=== PATIENT | female | born 2000 | race African-American/Black ===

== ENCOUNTER → 2021-09-27 | Outpatient (CLI) | payer OTHER ==
[2021-09-29 07:11] LABS: HIV AB/P24 AG SCREEN Non Reactive (Non Reactive)
[2021-09-29 09:12] LABS: HBSAG SCREEN Negative (Negative); HCV ANTIBODY <0.1 (0.0-0.9)
[2021-09-30 13:11] LABS: CHLAMYDIA BY NAA Negative (Negative); GONOCOCCUS BY NAA Negative (Negative); TRICH VAG BY NAA Negative (Negative)
== END ==
LOC: LAB 16:30 → LAB SHORT 16:30
PROVIDERS: Registered Nurse Community Health
DX: Z11.3 Encounter for screening for infections with a predominantly sexual mode of transmission (principal)
CPT/HCPCS: 86592; 86803; 87340; 87389

== ENCOUNTER → 2022-09-27 | Outpatient (CLI) | payer OTHER ==
[2022-09-27 14:30] LABS: Hematocrit 33.3 % (33.0-51.0); Hemoglobin 11.1 g/dL (11.5-16.0)
== END | disposition home or self-care (01) ==
LOC: LAB SHORT 13:27 → LAB 13:27
PROVIDERS: Registered Nurse Community Health
DX: Z34.92 Encounter for supervision of normal pregnancy, unspecified, second trimester (principal)
CPT/HCPCS: 82950; 85014; 85018

== ENCOUNTER → 2022-11-23 | Outpatient (CLI) | payer OTHER | LOC: LAB 14:22 → LAB SHORT 14:22 | DX: Z34.03 Encounter for supervision of normal first pregnancy, third trimester (principal) | CPT/HCPCS: 87081; 87150 ==

== ENCOUNTER 2022-12-13 17:45 | Inpatient (IN) | payer OTHER ==
[2022-12-13] VITALS (14 sets, daily range): BP systolic 99–120; BP diastolic 57–70
[~2022-12-13] VITALS: Ht 167.6 cm; Wt 75.5 kg
[2022-12-13 22:25] LABS: BASOPHILS ABSOLUTE AUTO 0.04 K/mm3 (0.00-0.23); BASOPHILS PERCENT AUTO 0 % (0-2); EOSINOPHILS ABSOLUTE AUTO 0.09 K/mm3 (0.00-0.68); EOSINOPHILS PERCENT AUTO 1 % (0-6); Hematocrit 37.1 % (33.0-51.0); Hemoglobin 12.6 g/dL (11.5-16.0); IMMATURE GRAN ABSOLUTE AUTO 0.21 K/mm3 (0.00-0.10); IMMATURE GRAN PERCENT AUTO 1 % (0-1); LYMPHOCYTES ABSOLUTE AUTO 0.75 K/mm3 (0.84-5.20); LYMPHOCYTES PERCENT AUTO 4 % (21-46); MONOCYTES ABSOLUTE AUTO 0.54 K/mm3 (0.16-1.47); MONOCYTES PERCENT AUTO 3 % (4-13); Mean Corpuscular HGB 31.5 pg (26.0-34.0); Mean Corpuscular Volume 93 fL (80-100); Mean Platelet Volume 11.7 fL (9.1-12.4); NEUTROPHILS ABSOLUTE AUTO 17.48 K/mm3 (1.96-9.15); NEUTROPHILS PERCENT AUTO 92 % (41-73); Platelet Count 123 K/mm3 (150-400); RDW Coefficient Variation 12.2 % (11.7-14.2); RDW Standard Deviation 41.7 fL (35.1-46.3); White Blood Cell Count 19.11 K/mm3 (4.00-11.30)
[2022-12-14] VITALS (26 sets, daily range): BP systolic 96–118; BP diastolic 50–69
[2022-12-15 02:36] VITALS: BP 112/68
[2022-12-15 05:43] VITALS: BP 106/66
[2022-12-15 06:08] LABS: BASOPHILS ABSOLUTE AUTO 0.03 K/mm3 (0.00-0.23); BASOPHILS PERCENT AUTO 0 % (0-2); EOSINOPHILS ABSOLUTE AUTO 0.01 K/mm3 (0.00-0.68); EOSINOPHILS PERCENT AUTO 0 % (0-6); Hematocrit 30.4 % (33.0-51.0); Hemoglobin 10.5 g/dL (11.5-16.0); IMMATURE GRAN ABSOLUTE AUTO 0.23 K/mm3 (0.00-0.10); IMMATURE GRAN PERCENT AUTO 1 % (0-1); LYMPHOCYTES ABSOLUTE AUTO 1.64 K/mm3 (0.84-5.20); LYMPHOCYTES PERCENT AUTO 8 % (21-46); MONOCYTES ABSOLUTE AUTO 1.58 K/mm3 (0.16-1.47); MONOCYTES PERCENT AUTO 7 % (4-13); Mean Corpuscular HGB 31.7 pg (26.0-34.0); Mean Corpuscular HGB Conc 34.5 g/dL (31.5-36.5); Mean Corpuscular Volume 92 fL (80-100); Mean Platelet Volume 11.2 fL (9.1-12.4); NEUTROPHILS ABSOLUTE AUTO 17.88 K/mm3 (1.96-9.15); NEUTROPHILS PERCENT AUTO 84 % (41-73); Platelet Count 111 K/mm3 (150-400); RDW Coefficient Variation 12.3 % (11.7-14.2); RDW Standard Deviation 41.6 fL (35.1-46.3); Red Blood Cell Count 3.31 M/mm3 (3.80-5.20); White Blood Cell Count 21.37 K/mm3 (4.00-11.30)
[2022-12-15 08:22] VITALS: BP 107/55
[2022-12-15 11:25] VITALS: BP 91/57
--- NOTE | 2022-12-15 20:48 | NUR ---
[facility] HOME WITH [facility]ABY
== END 2022-12-15 19:45 | disposition home or self-care (01) | DRG 807 ==
LOC: BC 17:45 → OBS 17:45 → BC 21:36
PROVIDERS: ADMIT Registered Nurse Community Health
PROC: 10E0XZZ Delivery of Products of Conception, External Approach (ICD-10-PCS; principal; 2022-12-13)
PROC: 3E033VJ Introduction of Other Hormone into Peripheral Vein, Percutaneous Approach (ICD-10-PCS; 2022-12-13)
PROC: 10907ZC Drainage of Amniotic Fluid, Therapeutic from Products of Conception, Via Natural or Artificial Opening (ICD-10-PCS; 2022-12-13)
PROC: 3E0R3BZ Introduction of Anesthetic Agent into Spinal Canal, Percutaneous Approach (ICD-10-PCS; 2022-12-13)
PROC: 00HU33Z Insertion of Infusion Device into Spinal Canal, Percutaneous Approach (ICD-10-PCS; 2022-12-13)
PROC: 0HQ9XZZ Repair Perineum Skin, External Approach (ICD-10-PCS; 2022-12-13)
DX: O99.892 Other specified diseases and conditions complicating childbirth (principal); Z37.0 Single live birth; M54.9 Dorsalgia, unspecified; Z3A.39 39 weeks gestation of pregnancy; O70.0 First degree perineal laceration during delivery
CPT/HCPCS: 36415; 51702; 59025; 85025; 86850; 86900; 86901; A9270; C9113; J1885; J2405; J2590; J3010; J7120

== ENCOUNTER → 2024-02-08 | Outpatient (CLI) | payer OTHER | END | disposition home or self-care (01) | LOC: LAB SHORT 09:05 → LAB 09:05 | DX: L81.9 Disorder of pigmentation, unspecified (principal) | CPT/HCPCS: 88305 ==